=== PATIENT | female | born 1950 | race Caucasian/White ===

== ENCOUNTER 2017-11-10 18:31 | Emergency (ER) | payer MEDICARE | END 2017-11-10 21:57 | disposition home or self-care (01) | LOC: D.ER 18:31 | DX: S00.03XA Contusion of scalp, initial encounter (principal); W18.39XA Other fall on same level, initial encounter; Y93.E9 Activity, other interior property and clothing maintenance; Y92.019 Unspecified place in single-family (private) house as the place of occurrence of the external cause ==

== ENCOUNTER → 2019-02-28 20:13 | Outpatient (CLI) | payer MEDICARE | END | disposition home or self-care (01) | LOC: D.LABREF 20:13 | PROVIDERS: ATTEND Urology | DX: N39.0 Urinary tract infection, site not specified (principal) ==

== ENCOUNTER → 2019-03-07 08:20 | Outpatient (CLI) | payer MEDICARE ==
[2019-03-07 09:08] LABS: BASOPHILS 0.5 % (0-2); EOSINOPHILS 1.9 % (0-7); HEMATOCRIT 38.2 % (36.0-48.0); HEMOGLOBIN 13.1 g/dL (12-16); IMMATURE GRANULOCYTES 0.2 % (0-5); LYMPHOCYTES 20.9 % (15-50); MCH 29.7 pg (26.0-34.0); MCHC 34.3 g/dL (31.0-37.0); MCV 86.6 fL (80.0-100.0); MEAN PLATELET VOLUME 9.1 fL (7.4-10.4); MONOCYTES 13.7 % (2-11); NEUTROPHILS 62.8 % (40-80); PLATELET COUNT 225 10x3/uL (130-400); RBC 4.41 10x6/uL (4.00-5.40); RDW 12.6 % (11.5-14.5); WBC 6.4 10x3/uL (4.8-10.8)
[2019-03-07 09:20] LABS: ALBUMIN 3.6 g/dL (3.4-5.0); ALKALINE PHOSPHATASE 93 U/L (46-116); ALT (SGPT) 16 U/L (10-68); BILIRUBIN - TOTAL 0.46 mg/dL (0.2-1.3); CALC OSMOLALITY 282 mosm/kg (275-300); CALCIUM 8.9 mg/dL (8.5-10.1); CARBON DIOXIDE 29.6 mmol/L (21.0-32.0); CHLORIDE - SERUM 107 mmol/L (98-107); CREATININE - SERUM 0.8 mg/dL (0.6-1.3); GLUCOSE 97 mg/dL (74-106); POTASSIUM - SERUM 3.6 mmol/L (3.5-5.1); SODIUM 142 mmol/L (136-145); UREA NITROGEN 12 mg/dL (7-18); eGFR NON AFRICAN AMERICAN 75 mL/min (90-120)
[2019-03-07 12:24] LABS: ERYTHROCYTE SEDIMENTATION RATE 3 mm/hr (0-30)
== END | disposition home or self-care (01) ==
LOC: D.CT 08:20
PROVIDERS: ATTEND Internal Medicine Gastroenterology
DX: K57.00 Diverticulitis of small intestine with perforation and abscess without bleeding (principal)

== ENCOUNTER → 2019-03-16 07:19 | Outpatient (CLI) | payer MEDICARE | END | disposition home or self-care (01) | LOC: D.US 07:19 | PROVIDERS: ATTEND Internal Medicine Gastroenterology | DX: R10.31 Right lower quadrant pain (principal); R19.00 Intra-abdominal and pelvic swelling, mass and lump, unspecified site; R19.7 Diarrhea, unspecified; R63.4 Abnormal weight loss ==

== ENCOUNTER → 2019-04-11 17:55 | Outpatient (CLI) | payer MEDICARE | END | disposition home or self-care (01) | LOC: D.LABREF 17:55 | PROVIDERS: ATTEND Urology | DX: Z00.01 Encounter for general adult medical examination with abnormal findings (principal) ==

== ENCOUNTER 2020-11-18 11:08 | Outpatient (CLI) | payer MEDICARE ==
[~2020-11-18] VITALS: Ht 158.8 cm; Wt 59.1 kg
[2020-11-18 12:47] VITALS: BP 114/77; Ht 158.8 cm; Wt 59.1 kg
== END 2020-11-18 13:15 | disposition home or self-care (01) ==
LOC: D.OPS 11:08
PROVIDERS: ATTEND Family Medicine
DX: M81.0 Age-related osteoporosis without current pathological fracture (principal)